=== PATIENT | male | born 1985 | race Caucasian/White ===

== ENCOUNTER 2020-10-09 16:10 | Emergency (ER) | payer OTHER, SELFPAY ==
[2020-10-09] VITALS (8 sets, daily range): BP systolic 48–200; BP diastolic 30–110; PULSE 37–155; RESP 7–43; O2SAT 88–100
[2020-10-09] MEDS: EPINEPHrine 1 MG/10 ML SYR IVP ×4 (16:16→16:46)
[2020-10-09] MEDS: Normal Saline 1,000 ML 1000 ML IV (16:20)
[2020-10-09] MEDS: Sodium Bicarbonate 50 MEQ/50 ML SYR IVP ×2 (16:37→16:47)
[2020-10-09] MEDS: Calcium Gluconate 4.65 MEQ/10 ML VIAL 4.65 MG IVP (16:37)
--- NOTE | 2020-10-09 16:45 | RT.EKG_ITS ---
APPROVED REPORT Exam: Resting ECG Patient Location: E HR:103 bpm ECG Measurements Heart Rate 103 AXIS CO 107 P 74 QRSd 95 QRS 50 QT 344 T 45 QTc 440 Conclusion Sinus rhythm...normal P axis, V-rate 60- 99 Atrial premature complexes...SV complexes w/ short R-R intvls Borderline ST depression, diffuse leads...ST <-0.07mV, ant/lat/inf. I have reviewed and interpreted ECG and agree with software generated interpretation.
--- NOTE | 2020-10-09 17:14 | DI.RAD_ITS ---
EXAM: XR PORTABLE CHEST AP POST LINE CLINICAL HISTORY: Post Intubation' post cardiac arrest TECHNIQUE: 2D digital imaging was performed. COMPARISON: No exams were available for comparison FINDINGS: MEDIASTINUM: Normal. HEART: Normal. PULMONARY VASCULATURE: Normal. LUNGS: There are perihilar infiltrates right greater than left. PLEURAL SPACE: No pleural effusion or pneumothorax. BONE:Within normal limits for the patient's age. OTHER FINDINGS:The tip of the patient's endotracheal tube is at the level of the brendon and should be retracted 1-2 cm. Portions of the left chest and the lung apices are not included on this examinati on due to patient positioning. IMPRESSION: Tip of the endotracheal tube is seen at the level of the brendon and should be retracted 1-2 cm. Bilateral perihilar infiltrates, right greater than left. Perihilar pneumonia and/or edema. A follo w-up chest x-ray should be considered for for re-evaluation of ETT placement. DATA REPOSITORY: RADIATION DOSE DELIVERED:
[2020-10-09 17:26] LABS: Abs Immature Grans 1.48 10^3/uL (0.0-0.06); Absolute Basophil Count 0.05 10^3/uL (0.0-0.2); Absolute Eosinophil Count 0.11 10^3/uL (0.0-0.7); Absolute Monocyte Count 0.36 10^3/uL (0.1-0.8); Basophils % 0.4; Eosinophils % 0.9; HCT 34.1 % (40.0-50.0); Immature Grans % 12.3; Lymphocytes % 34.9; MCH 32.3 pg (27.0-33.0); MCHC 32.3 % (32.0-36.0); MPV 10.2 fL (8.0-11.0); Neutrophils % 48.5; Nucleated RBC 0 %; Platelet Count 119 10^3/uL (130-400); RBC 3.41 10^6/uL (4.36-5.78); RDW 11.9 % (11.8-14.1); RDW-SD 43.3 fL; WBC 11.99 10^3/uL (4.4-10.8)
[2020-10-09 17:27] LABS: Absolute Lymphocyte Count 4.18 10^3/uL (1.2-3.4); Absolute Neutrophil Count 5.82 10^3/uL (1.2-6.7)
[2020-10-09 17:31] LABS: INR 1.9 (0.9-1.1); Prothrombin Time 18.6 sec (9.3-11.0)
[2020-10-09 17:32] LABS: PTT Activated 90.8 sec (21.0-27.5)
[2020-10-09 17:34] LABS: Lactate 10.9 mmol/L (0.6-1.4)
--- NOTE | 2020-10-09 17:37 | RESPIRATORY ---
Pt brought in as a code in progress post hanging, I-gel [address] Pt bagged easily, etco2 @ 45, spo2 when reading in 90's. Md intubated with 7.5 ett, 28@teeth, secured, positive etco2, bilateral breath sounds. With ROSC pt was placed on vent - 440/18/100 +6. Pt did not maintain pulses, bagged intermittently with all compressions TOD called, ett left in place for shingle bolt cutter.
--- NOTE | 2020-10-09 17:53 | NUR.NOTE ---
Nursing Note: Pt arrives to ED via EMS 1611 s/p cardiac arrest with igel airway in place. EMS had established an IO in right lower leg. Pt transferred to ED stretcher from EMS stretcher, strong femoral pulse. IV was established, pulse was lost and compressions were initiated using GIOVANNA device. See code flow sheet for all medications administered. After numerous rounds of compressions time of was called at [address] Mosqueda. Pt did not have any belongings on him other than 2 pairs of socks and green scrub pants which were cut off during code. knitted cloth examiner currently in with patient, 2 correctional officers remain at the bedside. Next of kin/Mother notified via Dr. Mosqueda
[2020-10-09 18:05] LABS: Albumin 2.1 g/dL (3.4-5.0); Alkaline Phosphatase 84 U/L (46-116); BUN 15 mg/dL (7-18); Bilirubin, Total 0.5 mg/dL (0.2-1.0); CREATININE 1.62 mg/dL (0.70-1.30); Calcium 7.2 mg/dL (8.5-10.1); Estimated GFR 48.45 (mL/min/1.73m2); Glucose 373 mg/dL (74-106); Sodium 143 mmol/L (136-145); Total Protein 4.1 g/dL (6.4-8.2)
[2020-10-09 18:06] LABS: ALT 760 U/L (16-63); AST 963 U/L (15-37); Anion Gap 13.6 mmol/L (3-11); CO2 22.4 mmol/L (21.0-32.0); Chloride 107 mmol/L (98-107); Magnesium 3.1 mg/dL (1.8-2.4); Potassium 4.2 mmol/L (3.5-5.1)
[2020-10-09 18:09] LABS: Troponin I 46.39 ng/mL (<0.06)
--- NOTE | 2020-10-09 18:35 | ED.GENADUL_ITS ---
Discharge Plan Disposition Patient Disposition: Discharge Details Clinical Impression: Cardiopulmonary arrest Primary Care Provider: Kerrie,Local ED Provider: Mame Mosqueda Discharge Data Date/Time: 10/09/20 19:20 Discharge Date/Time-TO BE ENTERED AT DEPARTURE: 10/09/20 19:20 Medical Decision Making 1612 -- 35 yo M w/ no know medical history presents from the senior living as a cardiac arrest s/p hanging. Patient had 1 shock at the senior living and 5 rounds of epi prior to arrival to the ED. I-gel placed by EMS. ROSC obtained in route per EMS just prior to arrival. Upon arrival to ED, patient noted to have a pulse, heart rate in the 70s, sinus rhythm on the monitor but unresponsive with fixed and dilated pupils. Mottling noted at distal ends of extremities. BP 40s/20s. Shortly after arrival to ED, patient became pulseless and CPR resumed. Patient given a round of epi, 1 amp of bicarb and 1 g calcium chloride. Shortly after, patient noted to be V. fib on the monitor and 1 shock was given. Patient then noted to have a pulse, sinus rhythm on monitor, with heart rate, blood pressure and O2 saturation within normal limits. Patient bagging easily with I gel. Patient then had definitive airway placed with 7.5 ET tube. [facility] paged for transfer. 1700 -- Patient lost pulse multiple times with additional rounds of epi and 1 additional amp of bicarb given. Discussed with [facility] critical care Dr. Spain who agreed that it appears that additional efforts are futile at this time. Called the correctional facility and able to obtain the number for his mother Ernestina Galicia at [phone] and not a working number. This attempt was made to contact family member to obtain their wishes for continuing as it appears any extreme measures are futile at this time. Patient remains unresponsive with fi xed and dilated pupils. Patient given 1 additional shock when noted to be V. fib on the monitor. P atient then noted to be pulseless and asystole. Bedside ultrasound noted no cardiac wall motion. Time of 1715 Upon formal physical exam and evaluation of patient, he was rolled and noted to have large amount of maroon-colored stool which was guaiac positive. Nursing staff discussed with the correctional facility again and there was no known medical history or medications. 1744 --community worker able to obtain a cell number for the patient at [phone]. This number was called and female who identified herself as patient's mother Ernestina Galicia answered the phone. I inquired if she could come to the emergency department or reach out with another family member. She stated she was alone and that she could not come up to emergency department. She was told over the phone that her son was now . She stated that she felt comfortable to travel to another family member's house at this time. She was given the emergency department number for any questions. 2029 --patient's mom Ernestina Galicia called the ED to state that she was safe at home. Mother confirmed no known medical history or medications other current alcohol abuse and former opiate abuse. Medical Records Medical records reviewed: Yes I reviewed the patient's medical records. Imaging Data Radiologic Study: Radiologist's impression: Chest x-ray: 1. Tip of endotracheal tube resides less than 1 cm superior to the brendon. Consider retraction. 2. Mildly displaced right lateral fifth rib fracture. 3. No pneumothorax identified in this limited exam, as described above 4. Patchy airspace opacities as described above, suggesting aspiration or pneumonia. Lab Data Lab results reviewed: Yes I reviewed the patient's lab results. ECG Data Attestation: I personally reviewed and interpreted this ECG (s) as follows: Interpretation: rate of 103bpm, sinus, 2mm ST depression in II, III, aVF, V5-6, 1mm ST depression in V3-4, No STEMI. SC 107, QRS 95, QTc 440 HPI General Mode of arrival: EMS . Date/Time Provider Initiated Documentation: 10/09/20 16:49 . Limitations to Documentation: other (unresponsive) . Information obtained by: EMS . HPI Narrative: Pt is a 35-year-old male who presents from the [facility] as a cardiac arrest. Report per correctional facility staff that patient was last checked and seen normal at 1502 and patient was found at 1519 today to be hanging in his senior living cell. EMS called the ED to state that they were responding to the senior living for pt found hanging. Approximately 10 minutes later they called the ED to state that a code was in progress. EMS reported that a total of 5 rounds of epi were given in total since onset of code. They also reported that one shock was given at the senior living. Patient was initially noted to be in asystole by EMS and then PEA. ROSC was eventually obtained in route per EMS. Related Data Home Medications Medication Instructions Recorded Confirmed Unknown [No Known Home Meds] 10/09/20 10/09/20 Allergies Allergy/AdvReac Type Severity Reaction Status Date / Time No Known Allergies Allergy Unverified 10/09/20 17:49 General Stated Complaint: CodeBlue MATT: 1 Review of Systems Unobtainable due to mental status [facility] Social History Smoking risk assessment performed?: No Additional Social history: pt unable to answer any questions, arrives intubated with no history known by correctional staff Exam Const General: patient mechanically ventilated (I-gel) Nutritional Appearance: thin Orientation: other (unresponsive) [facility] Head: normal to inspection Ears: external ears normal General nose exam: external nose normal Face and sinus: normal facial exam Mouth: oral mucosae normal Eyes Pupils: dilated bilaterally and fixed bilaterally Neck Neck: normal visual inspection Chest Chest/axillae images: 1. U shaped abrasion/ecchyhmoses c/w ems compression device Resp Auscultation: other (equal breath sounds with bagging) Cardio Rate: regular rate Rhythm: regular rhythm GI Inspection: normal to inspection and no abdominal wall ecchymosis Palpation: soft and not firm Back/Spine/Pelvis Other: thoracic spine normal to inspection Back/spine/pelvis image: 1. Superficial 2x2cm abrasion/skin avulsion Skin General skin exam: mottling (distal extremities) Neuro General: other (unresponsive) Extrem General: no edema Psych Appearance: other (unresponsive) Course Vital Signs Vital signs: Vital Signs Pulse 92 H 10/09/20 16:45 Respiratory Rate 13 10/09/20 16:45 Blood Pressure 48/30 L 10/09/20 16:45 Pulse Oximetry 91 L 10/09/20 16:45 Pulse 155 H 10/09/20 17:02 Pulse 37 L 10/09/20 17:10 Respiratory Rate 43 H 10/09/20 17:02 Blood Pressure 200/110 H 10/09/20 17:02 Blood Pressure Mean 123 10/09/20 17:02 Blood Pressure Position Supine 10/09/20 16:45 Pulse Oximetry 89 L 10/09/20 17:10 Respiratory End-tidal CO2 33 10/09/20 17:02 Oxygen Delivery Method Ambu-Bag 10/09/20 16:45 Lab/Test Results Lab/Test Results: Laboratory Tests Range/Units 10/09/20 10/09/20 10/09/20 16:23 16:30 16:30 WBC (4.4-10.8) 10^3/uL 11.99 H RBC (4.36-5.78) 10^6/uL 3.41 L Hgb (13.5-17.5) g/dL 11.0 L Hct (40.0-50.0) % 34.1 L MCV (80-95) fL 100.0 H MCH (27.0-33.0) pg 32.3 MCHC (32.0-36.0) % 32.3 RDW (11.8-14.1) % 11.9 Plt Count (130-400) 10^3/uL 119 L MPV (8.0-11.0) fL 10.2 Immature Gran % 12.3 Neutrophils % 48.5 Lymphocytes % 34.9 Monocytes % 3.0 Eosinophils % 0.9 Basophils % 0.4 Nucleated RBC % % 0 Absolute Neutrophils (1.2-6.7) 10^3/uL 5.82 Absolute Lymphocytes (1.2-3.4) 10^3/uL 4.18 H Absolute Monocytes (0.1-0.8) 10^3/uL 0.36 Absolute Eosinophils (0.0-0.7) 10^3/uL 0.11 Absolute Basophils (0.0-0.2) 10^3/uL 0.05 PT (9.3-11.0) sec INR (0.9-1.1) APTT (21.0-27.5) sec ABG Sample Site ABG pH ABG pCO2 ABG pO2 ABG HCO3 ABG Total CO2 ABG O2 Saturation ABG Base Excess VBG pH VBG pCO2 VBG pO2 VBG HCO3 VBG Total CO2 VBG O2 Saturation VBG Base Excess VBG Lactate (0.6-1.4) mmol/L 10.9 H* Oxygen Liter Flow FiO2 Sodium (136-145) mmol/L 143 Potassium (3.5-5.1) mmol/L 4.2 Chloride (98-107) mmol/L 107 Carbon Dioxide (21.0-32.0) mmol/L 22.4 Anion Gap (3-11) mmol/L 13.6 H BUN (7-18) mg/dL 15 Creatinine (0.70-1.30) mg/dL 1.62 H Estimated GFR/1.73 m2 (mL/min/1.73m2) 48.45 Glucose (74-106) mg/dL 373 H Calcium (8.5-10.1) mg/dL 7.2 L Magnesium (1.8-2.4) mg/dL 3.1 H Total Bilirubin (0.2-1.0) mg/dL 0.5 AST (15-37) U/L 963 H ALT (16-63) U/L 760 H Alkaline Phosphatase (46-116) U/L 84 Troponin I (<0.06) ng/mL 46.39 H* Total Protein (6.4-8.2) g/dL 4.1 L Albumin (3.4-5.0) g/dL 2.1 L Range/Units 10/09/20 10/09/20 16:30 16:30 WBC (4.4-10.8) 10^3/uL RBC (4.36-5.78) 10^6/uL Hgb (13.5-17.5) g/dL Hct (40.0-50.0) % MCV (80-95) fL MCH (27.0-33.0) pg MCHC (32.0-36.0) % RDW (11.8-14.1) % Plt Count (130-400) 10^3/uL MPV (8.0-11.0) fL Immature Gran % Neutrophils % Lymphocytes % Monocytes % Eosinophils % Basophils % Nucleated RBC % % Absolute Neutrophils (1.2-6.7) 10^3/uL Absolute Lymphocytes (1.2-3.4) 10^3/uL Absolute Monocytes (0.1-0.8) 10^3/uL Absolute Eosinophils (0.0-0.7) 10^3/uL Absolute Basophils (0.0-0.2) 10^3/uL PT (9.3-11.0) sec 18.6 H INR (0.9-1.1) 1.9 H APTT (21.0-27.5) sec 90.8 H* ABG Sample Site Cancelled ABG pH Cancelled ABG pCO2 Cancelled ABG pO2 Cancelled ABG HCO3 Cancelled ABG Total CO2 Cancelled ABG O2 Saturation Cancelled ABG Base Excess Cancelled VBG pH Cancelled VBG pCO2 Cancelled VBG pO2 Cancelled VBG HCO3 Cancelled VBG Total CO2 Cancelled VBG O2 Saturation Cancelled VBG Base Excess Cancelled VBG Lactate (0.6-1.4) mmol/L Oxygen Liter Flow Cancelled FiO2 Cancelled Sodium (136-145) mmol/L Potassium (3.5-5.1) mmol/L Chloride (98-107) mmol/L Carbon Dioxide (21.0-32.0) mmol/L Anion Gap (3-11) mmol/L BUN (7-18) mg/dL Creatinine (0.70-1.30) mg/dL Estimated GFR/1.73 m2 (mL/min/1.73m2) Glucose (74-106) mg/dL Calcium (8.5-10.1) mg/dL Magnesium (1.8-2.4) mg/dL Total Bilirubin (0.2-1.0) mg/dL AST (15-37) U/L ALT (16-63) U/L Alkaline Phosphatase (46-116) U/L Troponin I (<0.06) ng/mL Total Protein (6.4-8.2) g/dL Albumin (3.4-5.0) g/dL Procedures Intubation Time out performed: Yes sedative: none Laryngoscope: Deepa ET Tube Size: 7.5 ET Tube Uncuffed: No Tube Secured Depth (cm): 28 Tube Secured Location: lips Tube Placement Confirmation: visualized tube passing through cords, equal breath sounds bilaterally, no breath sounds over epigastrum and confirmation by capnometry Patient Tolerated Procedure: no complications Intubation Complications: none Critical Care Time Critical Care Time Critical Care Time: Yes Total Critical Care Time: 60 Attestation: I spent 60 minutes of critical care time with this patient. This does not include time spent on separately reported billable procedures.
--- NOTE | 2020-10-09 19:44 | NUR.NOTE ---
Addendum entered by Marissa Rao 10/10/20 13:40: Please note medication entered into MAR after event. Verbal orders given during emergent life saving attempt by Dr. Mosqueda as reflected in flow sheet below. Please consider the flow sheet to be the accurate representation of events, as charting occurred after event. Flow sheet transcribed from real time paper charting. Original Note: Nursing Note: Patient arrived at the Emergency Department via EMS @ 1611. IO in place in right leg, Igel inserted in field [employer]. ROSC achieved prior to arrival. Patient was put on the monitor and GIOVANNA CPR machine was placed 1615 18g IV placed in right AC 1616 1mg Epi given in right AC, followed by NS flush 1618 No pulse found, GIOVANNA started 1620 Monitor showed VFib, 1 shock administered @ 200 J, pulse found 1625 No pulse found, GIOVANNA started 1625 1mg Epi given in right AC, followed by NS flush 1627 Pulse found 1628 7.5 ET tube inserted by Dr. Mosqueda, 28 at the teeth 1630 Pulse remained 1629 20g IV placed in left AC 1631 Cooling initiated with ice packs to core & cold fluid administered through 20g in left AC 1635 No pulse found, GIOVANNA started, 1mg Epi given in right AC 1637 1 amp of Sodium Bicarb given through right AC, followed by NS flush, followed by 1g Calcium gluconate [address] Mosqueda contacted [facility] 1644 Pulse not found, GIOVANNA started 1646 1mg Epi given through right AC, followed by NS flush 1647 1 amp of Sodium Bicarb given through right AC followed by NS flush 1648 Pulse found 1654 Epi drip started @ 0.2mcg/kg/min. Patient weight 77kg 1655 Pulse not found, GIOVANNA started 1702 PEA, CPR continued using GIOVANNA 1704 PEA, CPR continued using GIOVANNA 1707 PEA, CPR continued using GIOVANNA 1709 All resuscitation efforts stopped per Dr. Mosqueda for bedside cardiac ultrasound 1715 Monitor showed VFib, 1 shock administered @ 200 J, Asystole 1716 Time of called by Dr. Mosqueda
--- NOTE | 2020-10-10 08:13 | NUR.NOTE ---
Nursing Note: Accessed chart to assist FRANKY/Kat with the V# and orders of the EKG's. Danielle Albarado
--- NOTE | 2020-10-10 08:50 | NUR.NOTE ---
Nursing Note: Spoke with pt's mother, Ernestina Lee who can be reached at home at [phone]. She states she lives in [place], [place]. Mother is asking for pt's keys to access his apartment to clean it out. She is not listed in any legal document here at [facility]. [facility] clarify who, if any, pt had as listed next of kin. Of note, delivery department supervisor here at [facility] states body has already been transferred to [facility] for ME. Unsure if mother is aware that pt was an inmate.
--- NOTE | 2020-10-10 09:45 | NUR.NOTE ---
Nursing Note: Spoke with Ernestina Lee at [phone] and informed her that pt's body had been transferred to [facility] (she had been made aware this would happen yesterday). She was also made aware that pt did not have any other belongings with him except green scrub pants and socks, both of which were cut during resuscitation attempts. Mother states she was aware that pt had been 'brought in from corrections' and states she would be contacting corrections as well as [facility] police. Unsure of connection.
--- NOTE | 2020-10-10 10:33 | NUR.NOTE ---
Nursing Note: Spoke with Kristine from [facility], who has been tasked with returning pt's belongings to mother, according to Kristine's report. Kristine given mother's contact information, cell and home, to assist return of pt's belongings. Will consider resolved and closed on the part of [facility] in this matter.
== END 2020-10-09 19:20 | disposition expired ==
PROVIDERS: Emergency Provider Physician Assistant
DX: I46.8 Cardiac arrest due to other underlying condition (principal); T14.91XA Suicide attempt, initial encounter; X83.8XXA Intentional self-harm by other specified means, initial encounter
CPT/HCPCS: 31500; 36415; 71045; 80053; 82805; 93005; 96361; 96365; 96375; 96376; 99291; 83605; 83735; 84484; 85025; 85610; 85730; 93010; J0171; J0610